=== PATIENT | female | born 1960 | race Caucasian/White ===

== ENCOUNTER → 2024-01-09 11:02 | Outpatient (REF) | payer BC, SELFPAY | LOC: HWRAD 11:02 | PROVIDERS: ATTENDING PHYSICIAN Family Medicine | DX: Z87.891 Personal history of nicotine dependence (principal) | CPT/HCPCS: 71271 ==

== ENCOUNTER → 2024-02-20 11:13 | Outpatient (REF) | payer BC, SELFPAY | LOC: WDC 11:13 | PROVIDERS: ATTENDING PHYSICIAN Family Medicine; REFERRING PHYSICIAN Surgery | DX: Z12.31 Encounter for screening mammogram for malignant neoplasm of breast (principal); M85.80 Other specified disorders of bone density and structure, unspecified site | CPT/HCPCS: 77063; 77067; 77080 ==

== ENCOUNTER → 2024-04-16 11:59 | Outpatient (REF) | payer BC, SELFPAY | LOC: RAD 11:59 | PROVIDERS: ATTENDING PHYSICIAN Emergency Medicine | DX: M25.551 Pain in right hip (principal) | CPT/HCPCS: 73502 ==

== ENCOUNTER 2024-09-01 14:48 | Emergency (ER) | payer BC, SELFPAY ==
[2024-09-01 15:26] VITALS: BP 140/63
[2024-09-01] MEDS: ROXICODONE 5 MG PO ×2 (17:05→21:43)
[2024-09-01 19:16] VITALS: BP 156/67
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
== END 2024-09-01 22:19 | disposition home or self-care (01) ==
LOC: EMR 14:48
PROVIDERS: EMERGENCY PHYSICIAN Emergency Medicine; FAMILY PHYSICIAN Emergency Medicine
DX: S82.142A Displaced bicondylar fracture of left tibia, initial encounter for closed fracture (principal); W11.XXXA Fall on and from ladder, initial encounter; I10 Essential (primary) hypertension; E78.00 Pure hypercholesterolemia, unspecified; E11.9 Type 2 diabetes mellitus without complications; Z87.891 Personal history of nicotine dependence
CPT/HCPCS: 99284; 29505; 73564; 73700

== ENCOUNTER → 2025-03-09 18:33 | Outpatient (REF) | payer BC, SELFPAY | LOC: WDC 18:33 | PROVIDERS: ATTENDING PHYSICIAN Family Medicine | DX: Z12.31 Encounter for screening mammogram for malignant neoplasm of breast (principal) | CPT/HCPCS: 77063; 77067 ==

== ENCOUNTER 2025-03-22 20:06 | Emergency (ER) | payer BC, SELFPAY ==
[2025-03-22 20:11] VITALS: BP 158/74
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
== END 2025-03-22 22:36 | disposition home or self-care (01) ==
LOC: EMR 20:06
PROVIDERS: EMERGENCY PHYSICIAN Emergency Medicine; FAMILY PHYSICIAN Family Medicine
DX: S60.222A Contusion of left hand, initial encounter (principal); S63.502A Unspecified sprain of left wrist, initial encounter; S53.402A Unspecified sprain of left elbow, initial encounter; V11.0XXA Pedal cycle driver injured in collision with other pedal cycle in nontraffic accident, initial encounter; Y93.55 Activity, bike riding; E11.9 Type 2 diabetes mellitus without complications; E78.00 Pure hypercholesterolemia, unspecified; I10 Essential (primary) hypertension; Z79.4 Long term (current) use of insulin; Z87.891 Personal history of nicotine dependence
CPT/HCPCS: 99283; 29125; 73080; 73110; 73130